=== PATIENT | female | born 1990 | race Two or more races ===

== ENCOUNTER 2024-01-14 11:54 | Emergency (ER) | payer SELFPAY ==
[~2024-01-14] VITALS: Ht 170.2 cm; Wt 105.3 kg
[2024-01-14 11:56] VITALS: BP 108/56; TEMP 97.6; O2SAT 98
== END 2024-01-14 13:19 | disposition left against medical advice (07) ==
LOC: M ED 11:54
DX: Z53.21 Procedure and treatment not carried out due to patient leaving prior to being seen by health care provider (principal)